=== PATIENT | female | born 1990 | race Caucasian/White ===

== ENCOUNTER 2019-07-30 11:54 | Emergency (ER) | payer OTHER ==
[2019-07-30 12:10] VITALS: BP 134/82
--- NOTE | 2019-07-30 13:14 | ED Physician Documentation ---
PD HPI OPHTHO - Stated complaint Stated Complaint: BILATERAL EYE IRRITATION - Chief complaint Chief Complaint: Heent - History obtained from History obtained from: Patient - History of Present Illness Timing - onset: How many days ago (4) Timing - duration: Days (4) Timing - details: Gradual onset, Still present Severity Comments: moderate redness, discharge, started on R eye, now both Location: Both Quality / character: Aching Associated symptoms: Redness, Tearing, Discharge, Matting. No: Swelling, FB sensation, Photophobia, Double vision, Decreased vision, Loss of vision, Headache Contributing factors: Other (daughter with URI) Similar symptoms before: Diagnosis (similar to prior episode of conjunctivitis) Recently seen: Not recently seen - Treatment prior to arrival Treatment prior to arrival: none - Additional information Additional information: Reports associated sore throat and mild nonproductive cough. Denies sob. Denies fever Review of Systems Ten Systems: 10 systems reviewed and negative Constitutional: denies: Fever Eyes: reports: Discharge, Irritation. denies: Loss of vision, Decreased vision, Photophobia Ears: reports: Reviewed and negative Throat: reports: Sore throat Cardiac: denies: Chest pain / pressure, Palpitations, Pedal edema Respiratory: reports: Cough. denies: Dyspnea, Hemoptysis, Wheezing GI: denies: Abdominal Pain, Nausea, Vomiting, Diarrhea Skin: reports: Reviewed and negative. denies: Rash Musculoskeletal: reports: Reviewed and negative Neurologic: reports: Reviewed and negative Immunocompromised: reports: Reviewed and negative PD PAST MEDICAL HISTORY - Past Medical History Past Medical History: No - Present Medications Home Medications: Ambulatory Orders Medication Instructions Recorded Confirmed Bcp Patch 07/30/19 Dextroamphetamine/Amphetamine 07/30/19 [Adderall 10 mg Tablet] Erythromycin Base [Erythromycin 1 applic EACHEYE QID #1 oint...g. 07/30/19 Ophthalmic Ointment] Escitalopram Oxalate [Lexapro] 5 mg PO 07/30/19 Propranolol [Inderal] 10 mg PO BID 07/30/19 07/30/19 cloNIDine [Catapres] 0.1 mg PO BID 07/30/19 07/30/19 - Allergies Allergies/Adverse Reactions: Allergies Allergy/AdvReac Type Severity Reaction Status Date / Time lorazepam AdvReac Dizziness Verified 07/30/19 12:11 - Social History Does the pt smoke?: No Smoking Status: Never smoker PD ED PE NORMAL - Vitals Vital signs reviewed: Yes - General General: Alert and oriented X 3 - HEENT HEENT: Atraumatic, PERRL, EOMI, Ears normal, Moist mucous membranes, Pharynx benign, Dentition benign - Neck Neck: Supple, no meningeal sign, No JVD - Cardiac Cardiac: RRR - Respiratory Respiratory: No respiratory distress, Clear bilaterally - Abdomen Abdomen: Soft, Non tender, Non distended - Female Female : Deferred - Rectal Rectal: Deferred - Derm Derm: Normal color, Warm and dry, No rash - Extremities Extremities: No deformity, No edema - Neuro Neuro: Alert and oriented X 3 Eye Opening: Spontaneous Motor: Obeys Commands Verbal: Oriented GCS Score: 15 - Psych Psych: Normal mood, Normal affect PD ED PE EXPANDED - Eyes Eyes: PERRL, Normal accommodation, Both eyes, Injected conj/sclera (bilaterally ), Exudate. No: Scleral icterus Results - Vitals Vitals: Vital Signs - 24 hr 07/30/19 12:07 Temperature 37 C Heart Rate 80 Respiratory 18 Rate Blood Pressure 134/82 H O2 Saturation 100 Oxygen O2 Source Room air PD MEDICAL DECISION MAKING - ED course Complexity details: considered differential, d/w patient ED course: ddx- viral, allergic conjunctivitis, bacterial conjunctivitis, URI 28 y/o F with bilateral conjunctivitis, moderate discharge, possibly viral. not a contact lens wearer. will treat empirically with erythromycin ointment. Departure - Departure Disposition: 01 Home, Self Care Clinical Impression: Acute conjunctivitis, bilateral Qualifiers: Acute conjunctivitis type: unspecified Qualified Code(s): H10.33 - Unspecified acute conjunctivitis, bilateral Condition: Stable Record reviewed to determine appropriate education?: Yes Instructions: Conjunctivitis Follow-Up: MELISSA JAMES [Primary Care Provider] - As Needed Prescriptions: Erythromycin Base [Erythromycin Ophthalmic Ointment] 1 applic EACHEYE QID #1 oint...g. Comments: You have bilateral conjunctivitis. This may be viral or bacterial. You can take the prescribed antibiotic ointment for the next week for your symptoms. Discharge Date/Time: 07/30/19 13:43
== END 2019-07-30 13:43 | disposition home or self-care (01) ==
LOC: ED 11:54
DX: H10.33 Unspecified acute conjunctivitis, bilateral (principal)
CPT/HCPCS: 99282; 99283